=== PATIENT | male | born 1950 | race Caucasian/White ===

== ENCOUNTER → 2016-10-22 | Outpatient (REF) | payer BC ==
[2016-10-22 19:10] LABS: FERRITIN 36 NG/ML (26-388); PERCENT SATURATION 10.3 % (19.7-37.4); TOTAL IRON BINDING CAPACITY 378 UG/DL (250-450)
[2016-10-24 14:31] LABS: Lyme Disease IgG/IgM Antibodie <0.91 ISR (0.00-0.90); Lyme Disease IgM Ab Quantitati <0.80 index (0.00-0.79); SJOGREN'S ANTI SS-A <0.2 AI (0.0-0.9); SJOGREN'S ANTI SS-B <0.2 AI (0.0-0.9)
== END ==
LOC: M LAB REF 16:15
DX: R79.89 Other specified abnormal findings of blood chemistry (principal); R94.5 Abnormal results of liver function studies; R53.83 Other fatigue; E27.40 Unspecified adrenocortical insufficiency; W57.XXXA Bitten or stung by nonvenomous insect and other nonvenomous arthropods, initial encounter

== ENCOUNTER 2018-09-10 11:33 | Day surgery (SDC) | payer BC ==
[2018-09-10] MEDS: NS 1,000 ML IV (07:00)
[~2018-09-10 11:33] MED LIST: PROPOFOL 200 MG/20 ML VIAL As Ordered
[2018-09-10] MEDS ORDERED: LIDOCAINE 2% INJ 100 MG/5 ML SDV (FOR ANES.) As Ordered (12:15)
== END 2018-09-10 13:04 | disposition home or self-care (01) ==
LOC: M OPP 11:33
DX: Z12.11 Encounter for screening for malignant neoplasm of colon (principal); K64.0 First degree hemorrhoids; K57.30 Diverticulosis of large intestine without perforation or abscess without bleeding; K63.5 Polyp of colon; Z86.010 Personal history of colon polyps; I10 Essential (primary) hypertension; E78.5 Hyperlipidemia, unspecified; R12 Heartburn; M12.9 Arthropathy, unspecified; Z79.899 Other long term (current) drug therapy
CPT/HCPCS: 45385

== ENCOUNTER 2018-12-17 05:57 | Day surgery (SDC) | payer BC ==
[~2018-12-17] VITALS: Ht 177.8 cm; Wt 112.0 kg
[~2018-12-17 05:57] MED LIST changes: +DOXY20TA4 PO; +FURO20TA2 PO; +LOSA100T50 PO; +PRAV20TA2 PO; -PROPOFOL 200 MG/20 ML VIAL As Ordered; +TIMO0.5S42 OU
[2018-12-17] MEDS ORDERED: TOBRADEX OPHTH OINT 3.5 GM As Ordered ONE (06:38)
[2018-12-17] MEDS ORDERED: POVIDONE-IODINE 5% OPHTH PREP SOL 30ML As Ordered ONE (06:38)
[2018-12-17] MEDS ORDERED: LIDOCAINE 3.5 % 1ML OPHTH TOPICAL GEL OU ONE (07:00)
[2018-12-17] MEDS ORDERED: MIDAZOLAM INJ 2 MG/2 ML VIAL (J2250) As Ordered ONE (07:15)
[2018-12-17] MEDS ORDERED: fentaNYL 100 MCG/2 ML INJECTION (J3010) As Ordered ONE (07:15)
[2018-12-17] MEDS: LIDOCAINE 2% W/EPIN INJ 20ML **PRES FREE As Ordered ONE (07:33)
[2018-12-17 08:47] VITALS: BP 151/79
--- NOTE | 2018-12-17 11:00 | RO ---
DATE OF PROCEDURE: 12/17/2018 PREOPERATIVE DIAGNOSIS: Involutional entropion left lower lid. POSTOPERATIVE DIAGNOSIS: Involutional entropion left lower lid. PROCEDURE: Lateral tarsus left lower lid. SURGEON: Kei Haq MD ASSISTANT PROFESSOR OF ART: ANESTHESIA: Local IV standby. PROCEDURE IN DETAIL: Patient was brought to the operating room and laid in supine position. The left lower lid was examined and left canthal area was marked with a sterile marker. Following this, the left canthal area and left upper and lower lid were infiltrated using 2% lidocaine with 1:100,000 epinephrine. The muscular flap was then applied over the lateral canthus, following which a lateral canthotomy was done, followed by cantholysis of the lateral tendon inferiorly. A left tarsal strip was then prepared using electrocautery. Excess epidermis was then scraped using the #15 blade. Lid was positioned and was noted to be in good position where it was then inserted into to periosteum using #4-0 Prolene sutures. Skin was closed using vertical mattress sutures. Hemostasis was obtained as necessary. At the end of the case, TobraDex ointment was applied and patient returned to the recovery room in stable condition.
== END 2018-12-17 08:55 | disposition home or self-care (01) ==
LOC: M SDC 05:57
PROVIDERS: ATTEND Ophthalmology
DX: H02.005 Unspecified entropion of left lower eyelid (principal); I10 Essential (primary) hypertension; E78.00 Pure hypercholesterolemia, unspecified; K21.9 Gastro-esophageal reflux disease without esophagitis; M12.9 Arthropathy, unspecified; E03.9 Hypothyroidism, unspecified; R73.09 Other abnormal glucose; Z79.899 Other long term (current) drug therapy; Z86.010 Personal history of colon polyps; Z96.1 Presence of intraocular lens; Z98.41 Cataract extraction status, right eye; Z98.42 Cataract extraction status, left eye
CPT/HCPCS: 67914; J2250; J3010

== ENCOUNTER → 2021-09-14 | Outpatient (REF) | payer BC | LOC: M LAB REF 16:03 → EEVIPCON 16:03 | PROVIDERS: ATTEND Ophthalmology | DX: H10.31 Unspecified acute conjunctivitis, right eye (principal) ==

== ENCOUNTER → 2021-11-20 | Outpatient (REF) | payer BC ==
[~2021-11-20] MED LIST changes: +LOSA100T45 PO; -LOSA100T50 PO
== END ==
LOC: M LAB REF 16:25
PROVIDERS: ATTEND Internal Medicine
DX: E78.00 Pure hypercholesterolemia, unspecified (principal)

== ENCOUNTER → 2022-01-02 | Outpatient (REF) | payer BC | LOC: M LAB REF 14:02 | PROVIDERS: ATTEND Nurse Practitioner Family | DX: L57.0 Actinic keratosis (principal) ==

== ENCOUNTER 2022-05-16 18:40 | Emergency (ER) | payer BC ==
[~2022-05-16] VITALS: Ht 177.8 cm; Wt 114.9 kg
[2022-05-16 19:45] LABS: BASO # 0.1 10^3/uL (0.0-0.2); BASO % 0.6 % (0.0-1.0); EOS # 0.2 10^3/uL (0.0-0.5); EOS % 2.4 % (0.0-3.0); HEMATOCRIT 45.2 % (42.0-52.0); HEMOGLOBIN 14.8 g/dl (13.5-17.5); LYMPH # 1.4 10^3/uL (1.5-5.0); LYMPH % 18.3 % (24.0-44.0); MEAN CORPUSCULAR HEMOGLOBIN 28.8 pg (27.0-33.0); MEAN CORPUSCULAR HGB CONC 32.7 g/dl (32.0-36.5); MEAN CORPUSCULAR VOLUME 87.9 fl (80.0-96.0); MONO # 0.7 10^3/uL (0.0-0.8); MONO % 9.1 % (2.0-8.0); NEUTROPHILS # 5.5 10^3/uL (1.5-8.5); NEUTROPHILS % 69.3 % (36.0-66.0); PLATELET COUNT, AUTOMATED 210 10^3/uL (150-450); RED BLOOD COUNT 5.14 10^6/uL (4.30-6.10); WHITE BLOOD COUNT 7.9 10^3/uL (4.0-10.0)
[2022-05-16 19:48] LABS: ABG BASE EXCESS 3.8 (-2.0-2.0); ABG HCO3 28.5 MEQ/L (22.0-26.0); ABG O2 SATURATION 98.3 % (95.0-99.0); ABG PARTIAL PRESSURE O2 110.1 mmHg (75.0-100.0); ABG STANDARD HCO3 27.9 MEQ/L (22.0-26.0); ABG TOTAL CO2 29.8 MEQ/L (23.0-31.0); ABG pH (ARTERIAL) 7.439 UNITS (7.350-7.450)
[2022-05-16 20:20] LABS: CK-MB VALUE MASS 6.2 NG/ML (<3.6); MB/CK RELATIVE INDEX 2.19 (< OR =4)
[2022-05-16 20:32] LABS: ALBUMIN 3.8 GM/DL (3.2-5.2); ALT/SGPT 33 U/L (12-78); BILIRUBIN,DIRECT 0.2 MG/DL (0.0-0.2); BILIRUBIN,TOTAL 0.8 MG/DL (0.2-1.0); BLOOD UREA NITROGEN 12 MG/DL (7-18); CALCIUM LEVEL 9.3 MG/DL (8.8-10.2); CARBON DIOXIDE LEVEL 29 MEQ/L (21-32); CHLORIDE LEVEL 104 MEQ/L (98-107); CREATININE FOR GFR 1.08 MG/DL (0.70-1.30); GLOMERULAR FILTRATION RATE > 60.0 (>42); GLUCOSE, FASTING 114 MG/DL (70-100); NT-PRO BNP 53 PG/ML (<125); SODIUM LEVEL 138 MEQ/L (136-145); TOTAL PROTEIN 7.5 GM/DL (6.4-8.2)
[2022-05-16] MEDS ORDERED: ISOVUE-370 76% 100ML VIAL As Ordered ONE (20:45)
[2022-05-16 22:20] VITALS: BP 160/82
[2022-05-16 22:24] VITALS: O2SAT 95
== END 2022-05-16 23:10 | disposition home or self-care (01) ==
LOC: M ED 18:40
DX: R06.02 Shortness of breath (principal); I10 Essential (primary) hypertension; E78.5 Hyperlipidemia, unspecified; Z79.899 Other long term (current) drug therapy
CPT/HCPCS: 36415; 36600; 71046; 71275; 80048; 80076; 82550; 82553; 82803; 83880; 84443; 84484; 85025; 85379; 87486; 87581; 87633; 87798; 93005; 93041; 99285; Q9967

== ENCOUNTER 2023-08-07 08:29 | Day surgery (SDC) | payer BC ==
[~2023-08-07] VITALS: Ht 180.3 cm; Wt 114.3 kg
[~2023-08-07 08:29] MED LIST changes: +ECOT81TA5 PO; +LIDOCAINE 2% W/EPINEPHRINE 20ML VIAL **PRES FREE As Ordered ONE; +LIDOCAINE 3.5 % 1ML OPHTH TOPICAL GEL OU ONE; -LOSA100T45 PO; +LOSA100T46 PO; +LOSA25TA13 PO; +PREDOPD OU; +TIMO0.5S20 OU; +TOBRADEX OPHTH OINT 3.5 GM As Ordered ONE
[2023-08-07] MEDS ORDERED: fentaNYL 100 MCG/2 ML INJECTION As Ordered ONE ×2 (08:52→10:45)
[2023-08-07] MEDS ORDERED: MIDAZOLAM INJ 2MG/2ML VIAL As Ordered ONE (08:52)
[2023-08-07] MEDS ORDERED: propofoL 200 MG/20 ML VIAL As Ordered ONE (10:28)
[2023-08-07 12:20] VITALS: BP 162/80; TEMP 98.1; O2SAT 98
== END 2023-08-07 12:20 | disposition home or self-care (01) ==
LOC: M SDC 08:29
PROVIDERS: ATTEND Ophthalmology
DX: H02.135 Senile ectropion of left lower eyelid (principal); H02.132 Senile ectropion of right lower eyelid; I10 Essential (primary) hypertension; E78.00 Pure hypercholesterolemia, unspecified; Z79.899 Other long term (current) drug therapy; Z79.82 Long term (current) use of aspirin
CPT/HCPCS: 67917; J2250; J3010

== ENCOUNTER → 2025-04-15 | Outpatient (CLI) | payer BC, MEDICARE ==
[~2025-04-15] MED LIST changes: -DOXY20TA4 PO; +DOXY20TA6 PO; -LIDOCAINE 2% W/EPINEPHRINE 20ML VIAL **PRES FREE As Ordered ONE; -LIDOCAINE 3.5 % 1ML OPHTH TOPICAL GEL OU ONE; -PRAV20TA2 PO; +PRAV20TA78 PO; -TOBRADEX OPHTH OINT 3.5 GM As Ordered ONE
== END ==
LOC: M WUC 13:11
PROVIDERS: ATTEND Internal Medicine
DX: M25.552 Pain in left hip (principal); M16.12 Unilateral primary osteoarthritis, left hip

== ENCOUNTER → 2025-06-09 | Outpatient (REF) | payer MEDICARE, BC | LOC: M LAB REF 11:52 | PROVIDERS: ATTEND Internal Medicine | DX: M05.79 Rheumatoid arthritis with rheumatoid factor of multiple sites without organ or systems involvement (principal) ==